=== PATIENT | male | born 1990 | race Caucasian/White ===

== ENCOUNTER 2017-12-14 21:03 | Emergency (ER) | payer SELFPAY ==
[~2017-12-14] VITALS: Ht 182.9 cm; Wt 100.9 kg
[2017-12-14 21:08] VITALS: BP 144/67; PULSE 74; RESP 18; TEMP 98.8; O2SAT 99
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
== END 2017-12-14 23:19 | disposition home or self-care (01) ==
LOC: PHED 21:03
DX: S63.502A Unspecified sprain of left wrist, initial encounter (principal); V19.9XXA Pedal cyclist (driver) (passenger) injured in unspecified traffic accident, initial encounter; Y93.55 Activity, bike riding
CPT/HCPCS: 73110; 99283; L3908